=== PATIENT | female | born 1940 | race Caucasian/White ===

== ENCOUNTER → 2016-02-27 | Outpatient (CLI) | payer OTHER ==
--- NOTE | 2016-02-27 16:01 | DX ---
Supine Abdomen History: Diarrhea. Comparison: Abdomen September 02, 2006. Findings: The abdomen is imaged segmentally. Moderate stool is present throughout the colon. Bowel ga s pattern is normal. There is no free air. No definite renal or ureteral calcifications are identifie d. Degenerative change is present in the spine, most prominent in the lower thoracic spine. Mild dege nerative change is present in the hips. Impression: Constipation.
== END ==
LOC: BMCIMAGING 14:47
PROVIDERS: ATTEND Physician Assistant
DX: K59.00 Constipation, unspecified (principal)

== ENCOUNTER → 2016-12-31 | Outpatient (CLI) | payer OTHER | LOC: BMCIMAGING 11:21 | PROVIDERS: ATTEND Physician Assistant | DX: M25.561 Pain in right knee (principal) ==

== ENCOUNTER → 2017-01-08 | Outpatient (CLI) | payer OTHER | LOC: BMCIMAGING 13:25 | PROVIDERS: ATTEND Internal Medicine Endocrinology, Diabetes & Metabolism | DX: Z12.31 Encounter for screening mammogram for malignant neoplasm of breast (principal); E04.1 Nontoxic single thyroid nodule | CPT/HCPCS: 76536-PO; G0202 ==

== ENCOUNTER → 2017-03-05 | Outpatient (CLI) | payer OTHER | LOC: BMCIMAGING 10:37 | PROVIDERS: ATTEND Orthopaedic Surgery | DX: Z47.1 Aftercare following joint replacement surgery (principal); Z96.612 Presence of left artificial shoulder joint ==

== ENCOUNTER → 2018-01-20 | Outpatient (CLI) | payer OTHER | LOC: BMCIMAGING 11:27 | PROVIDERS: ATTEND Podiatrist Foot & Ankle Surgery | DX: M79.604 Pain in right leg (principal) ==